=== PATIENT | female | born 1980 | race Caucasian/White ===

== ENCOUNTER → 2020-05-19 | Outpatient (CLI) | payer OTHER ==
[~2020-05-19] MED LIST: ALLOPURINOL 10100 M2 PO; DULOXETINE HCL60 MG PO; FENOFIBRATE160 MG PO; FLEXERIL; HYDROXYZINE PAM50 MG; JARDIANCE10 MG PO; LANTUS SUBQ; LOPRESSOR50 MG PO; METFORMIN HCL500 M3 PO; PORTIA1 EACH; PROBIOTIC1 EAC7; ROSUVASTATIN CA20 MG PO; TRULICITY1.5 MG/0.5
== END ==
LOC: M.PC 05-14 08:00
PROVIDERS: ATTEND Physical Medicine & Rehabilitation
DX: M25.561 Pain in right knee (principal); M25.562 Pain in left knee; G62.9 Polyneuropathy, unspecified; M22.40 Chondromalacia patellae, unspecified knee; M25.862 Other specified joint disorders, left knee

== ENCOUNTER → 2020-05-26 | Outpatient (CLI) | payer OTHER | END | disposition home or self-care (01) | LOC: M.PC 10:22 | PROVIDERS: ATTEND Physical Medicine & Rehabilitation | DX: M17.0 Bilateral primary osteoarthritis of knee (principal); M25.561 Pain in right knee; M25.562 Pain in left knee; M22.41 Chondromalacia patellae, right knee; E11.9 Type 2 diabetes mellitus without complications; E78.5 Hyperlipidemia, unspecified; Z87.442 Personal history of urinary calculi; Z88.0 Allergy status to penicillin; Z88.2 Allergy status to sulfonamides; Z88.8 Allergy status to other drugs, medicaments and biological substances; Z98.890 Other specified postprocedural states; Z79.899 Other long term (current) drug therapy ==

== ENCOUNTER → 2020-06-11 | Outpatient (CLI) | payer OTHER | LOC: M.LAB 07:42 | PROVIDERS: ATTEND Physical Medicine & Rehabilitation | DX: Z01.812 Encounter for preprocedural laboratory examination (principal); Z20.822 Contact with and (suspected) exposure to COVID-19 ==